=== PATIENT | female | born 1965 | race Hispanic/Latino ===

== ENCOUNTER 2021-03-04 15:47 | Emergency (ER) | payer SELFPAY ==
[~2021-03-04] VITALS: Ht 154.9 cm; Wt 71.8 kg
== END 2021-03-04 20:00 | disposition home or self-care (01) ==
LOC: FSED 16:22
DX: R10.13 Epigastric pain (principal); K80.80 Other cholelithiasis without obstruction; R94.5 Abnormal results of liver function studies; F17.210 Nicotine dependence, cigarettes, uncomplicated
CPT/HCPCS: 74176; 76705; 80048; 80076; 81003; 85025; 99284